=== PATIENT | female | born 1955 | race Caucasian/White ===

== ENCOUNTER 2024-01-16 10:20 | Emergency (ER) | payer OTHER, SELFPAY ==
[2024-01-16 10:34] VITALS: BP 133/79
--- NOTE | 2024-01-16 11:06 | ED.GENMED ---
History of Present Illness
General
Chief Complaint: Abdominal Symptoms
Time Seen by Provider: 01/16/24 11:06
History of Present Illness
History of Present Illness:
HPI: Patient presents with abdominal discomfort, intermittent nausea and diarrhea. This been going on for several weeks. She had a similar episode that lasted for a couple of months last year. She had an unremarkable workup at that time. An
ultrasound is scheduled for next week.
EXAM:
GENERAL: Well appearing in no distress
HEENT: Moist oral mucosa
CARDIOVASCULAR: No murmurs, normal heart rate, regular rhythm, No chest wall tenderness
PULMONARY: No respiratory distress, breath sounds are clear and equal
ABDOMEN: Soft with no peritoneal signs, mild diffuse primarily upper tenderness, elevated BMI noted
NEUROLOGIC: Excellent strength all extremities, no coordination deficits
PSYCHIATRIC: Appropriate mental status, normal insight and judgement
EXTREMITIES: Nontender, no edema, moves all extremities equally
SKIN: No rash, no lesions
TIME OF INITIAL ENCOUNTER: 11:45 AM
NUMBER AND COMPLEXITY OF PROBLEMS ADDRESSED AT THE ENCOUNTER
� Chronic conditions affecting care: Diverticular disease, high blood pressure, hyperlipidemia, insomnia
� Acute Exacerbation and/or Progression of Chronic Illness: This is an acute problem
� Differential Diagnosis includes: Diverticulitis, GERD, bowel obstruction
AMOUNT AND/OR COMPLEXITY OF DATA TO BE REVIEWED AND ANALYZED
� I performed an independent evaluation of and my interpretation is:
EKG:
CT: CT imaging shows no acute abnormality
X-rays:
Laboratory Studies: Normal white count and hemoglobin, mild renal insufficiency noted. No clear evidence for urinary tract affection.
Other:
� Review of other/old records: The patient had normal CBC in 2016
� Clinical information was obtained by an independent historian: None needed
� Prescriptions/Medications Considered but not given:
� Further testing considered but not performed:
RISK OF COMPLICATIONS AND/OR MORBIDITY OR MORTALITY OF PATIENT MANAGEMENT
� Social determinants of health affecting care: Lives at home
� Discussion with other providers:
� Escalation of care including admission/observation vs risk of discharge considered: The patient had unremarkable ED workup and appears fairly comfortable. Unclear etiology of patient's symptoms however she appears comfortable
at time of discharge.
Phy Exam
Physical Exam
Physical Exam:
See HPI
Course
Orders/Labs/Results
Orders:
Orders
01/16/24 11:18
IV Insert/Care/Rem.- Treatment PRN
01/16/24 11:19
Complete Blood Count/With Diff Urgent
Comprehensive Metabolic Panel Urgent
Lipase Urgent
Urinalysis Reflex To Culture Urgent
Date Specimen was Collected: 01/16/24
Time Specimen was Collected: 11:19
Urine Microscopic Reflex Cult Urgent
01/16/24 11:23
CT Abd/pelvis W Iv Cont Urgent
Comment:
Reason For Exam: abd pain / more upper
Abnormal Lab Results
01/16/24
11:19
Sodium 134 L mmol/L
(135-145)
Chloride 94 L mmol/L
(98-107)
Carbon Dioxide 32 H mmol/L
(22-30)
Creatinine 1.3 H mg/dL
(0.6-1.0)
Glucose 111 H mg/dl
(70-99)
Urine Ketones 1+ A
(Negative)
Ur Occult Blood Reflex 2+ A
(Negative)
Urine Bilirubin 1+ A
(Negative)
Leukocyte Esterase Rfl Trace A
(Negative)
01/16/24 11:19
01/16/24 11:19
Vital Signs
Initial and Last Documented VS:
Initial Vital Signs
Temp Pulse Resp BP Pulse Ox
98.3 F 93 16 133/79 96
01/16/24 10:34 01/16/24 10:34 01/16/24 10:34 01/16/24 10:34 01/16/24 10:34
Last Documented Vital Signs
Temp Pulse Resp BP Pulse Ox
98.3 F 73 17 133/79 96
01/16/24 10:34 01/16/24 11:31 01/16/24 11:31 01/16/24 10:34 01/16/24 11:31
*Critical Care Note
Total Time (30-74mins, 75-104mins- exclusive of procedures): Not Applicable
ED Attending Note
-
Portions of this chart may have been created with voice recognition software.� Occasional wrong word or��sound alike� substitutions may have occurred due to the inherent limitations of voice recognition software.
Discharge Plan
Departure
Patient Disposition: Home (Routine Discharge)
Date of Disposition: 01/16/24
Time of Disposition: 13:54
Patient with high blood pressure during this ER visit?: Yes
Discharge Problem:
Abdominal pain
Instructions: Nausea and Vomiting, Adult (DC), Abdominal Pain
Prescriptions:
New
ondansetron HCl 4 mg tablet
4 mg PO TID PRN (Reason: nausea and vomiting) Qty: 10 0RF
Referrals:
Jeremy Hooker CRNP [Family Provider] -
Activity Restrictions/Additional Instructions:
The cause of your symptoms is unclear. Follow-up with your GI doctor. I sent a prescription for Zofran (nausea medicine) to your pharmacy. Return here if worse.
Interventions
Interventions:
*General Assessment Last Done: 01/16/24 10:34
ED- Fall Risk Assessment Last Done: 01/16/24 11:24
*ED COVID-19 Vaccine History Last Done: 01/16/24 10:34
MB-Dufkeq-Stmfacsmjs Assessment Last Done: 01/16/24 11:24
Discharge Date and Time
Print Language: MALDIVIAN
[2024-01-16 11:28] VITALS: BMI 36.2
[2024-01-16 11:29] LABS: % Basophils 0.8 % (0-2); % Eosinophils 2.1 % (0-6); % Immature Granulocytes 0.4 % (0-0.5); % Lymphocytes 25.1 % (20.5-51.1); % Monocytes 7.8 % (1.7-9.3); % Neutrophils 63.8 % (42.2-75.2); Absolute Basophils 0.1 10^3/uL (0-0.2); Absolute Eosinophils 0.2 10^3/uL (0-0.7); Absolute Lymphocytes 1.9 10^3/uL (1.2-3.4); Absolute Monocytes 0.6 10^3/uL (0.1-0.6); Absolute Neutrophils 4.9 10^3/uL (1.4-6.5); Hematocrit 40.6 % (37.0-47.0); Hemoglobin 13.9 g/dL (12.0-16.0); Mean Corp Hgb Conc. 34.2 g/dL (33.0-37.0); Mean Corpuscular Hgb 28.1 pg (27.0-31.0); Mean Corpuscular Volume 82.2 fL (81.0-99.0); Mean Platelet Volume 8.7 fL (7.4-10.4); Nucleated Red Blood Cells % 0 %; Platelet Count 291 10^3/uL (130-400); Red Blood Cell Count 4.94 10^6/uL (4.20-5.40); Red Cell Dist. Width 12.9 % (11.5-14.5); White Blood Cell Count 7.7 10^3/uL (4.8-10.8)
[2024-01-16 11:33] LABS: Urine Albumin Trace (Neg - Trace); Urine Bilirubin 1+ (Negative); Urine Character Clear (Clear); Urine Color Yellow; Urine Glucose Negative (Negative); Urine Ketone 1+ (Negative); Urine Leukocyte Trace (Negative); Urine Nitrite Negative (Negative); Urine Occult Blood 2+ (Negative); Urine Urobilinogen Negative (Neg - 1+)
[2024-01-16 11:47] LABS: ALT (SGPT) 27 U/L (0-35); AST (SGOT) 35 U/L (14-36); Albumin 4.7 g/dl (3.5-5.0); Alkaline Phosphatase 73 U/L (38-126); Blood Urea Nitrogen 15 mg/dl (7-17); Calcium 9.9 mg/dl (8.4-10.2); Carbon Dioxide 32 mmol/L (22-30); Chloride 94 mmol/L (98-107); Estimated Creatinine Clearance 54 ml/min; Glucose 111 mg/dl (70-99); Lipase 84 U/L (23-300); Potassium 3.5 mmol/L (3.5-5.1); Sodium 134 mmol/L (135-145); Total Bilirubin 0.6 mg/dl (0.2-1.3); Urine Red Blood Cell 0-2 /HPF (0-2); eGFR 45.07
--- NOTE | 2024-01-16 14:32 | ED.GENMED ---
History of Present Illness
General
Chief Complaint: Abdominal Symptoms
Time Seen by Provider: 01/16/24 11:06
Course
Orders/Labs/Results
Orders:
Orders
01/16/24 11:18
IV Insert/Care/Rem.- Treatment PRN
01/16/24 11:19
Complete Blood Count/With Diff Urgent
Comprehensive Metabolic Panel Urgent
Lipase Urgent
Urinalysis Reflex To Culture Urgent
Date Specimen was Collected: 01/16/24
Time Specimen was Collected: 11:19
Urine Microscopic Reflex Cult Urgent
01/16/24 11:23
CT Abd/pelvis W Iv Cont Urgent
Comment:
Reason For Exam: abd pain / more upper
Abnormal Lab Results
01/16/24
11:19
Sodium 134 L mmol/L
(135-145)
Chloride 94 L mmol/L
(98-107)
Carbon Dioxide 32 H mmol/L
(22-30)
Creatinine 1.3 H mg/dL
(0.6-1.0)
Glucose 111 H mg/dl
(70-99)
Urine Ketones 1+ A
(Negative)
Ur Occult Blood Reflex 2+ A
(Negative)
Urine Bilirubin 1+ A
(Negative)
Leukocyte Esterase Rfl Trace A
(Negative)
01/16/24 11:19
01/16/24 11:19
Vital Signs
Initial and Last Documented VS:
Initial Vital Signs
Temp Pulse Resp BP Pulse Ox
98.3 F 93 16 133/79 96
01/16/24 10:34 01/16/24 10:34 01/16/24 10:34 01/16/24 10:34 01/16/24 10:34
Last Documented Vital Signs
Temp Pulse Resp BP Pulse Ox
98.3 F 73 17 133/79 96
01/16/24 10:34 01/16/24 11:31 01/16/24 11:31 01/16/24 10:34 01/16/24 11:31
ED Attending Note
-
Portions of this chart may have been created with voice recognition software.� Occasional wrong word or��sound alike� substitutions may have occurred due to the inherent limitations of voice recognition software.
Discharge Plan
Departure
Patient Disposition: Home (Routine Discharge)
Date of Disposition: 01/16/24
Time of Disposition: 13:54
Patient with high blood pressure during this ER visit?: Yes
Discharge Problem:
Abdominal pain
Instructions: Nausea and Vomiting, Adult (DC), Abdominal Pain
Prescriptions:
New
ondansetron HCl 4 mg tablet
4 mg PO TID PRN (Reason: nausea and vomiting) Qty: 10 0RF
Referrals:
Jeremy Hooker CRNP [Family Provider] -
Activity Restrictions/Additional Instructions:
The cause of your symptoms is unclear. Follow-up with your GI doctor. I sent a prescription for Zofran (nausea medicine) to your pharmacy. Return here if worse.
Interventions
Interventions:
*General Assessment Last Done: 01/16/24 10:34
ED- Fall Risk Assessment Last Done: 01/16/24 11:24
*ED COVID-19 Vaccine History Last Done: 01/16/24 10:34
CH-Rtqjjy-Fevlfugwun Assessment Last Done: 01/16/24 11:24
Discharge Date and Time
Print Language: URDU
[2024-01-16 14:39] VITALS: BP 116/54
[2024-01-16 14:40] VITALS: BP 116/54
== END 2024-01-16 14:41 | disposition home or self-care (01) ==
LOC: EMR 10:20
PROVIDERS: EMERGENCY PHYSICIAN Emergency Medicine; FAMILY PHYSICIAN Nurse Practitioner Family
DX: R10.9 Unspecified abdominal pain (principal); R03.0 Elevated blood-pressure reading, without diagnosis of hypertension
CPT/HCPCS: 99285; 74177; 80053; 81003; 81015; 83690; 85025; Q9967

== ENCOUNTER → 2024-01-23 11:03 | Outpatient (REF) | payer OTHER, SELFPAY | LOC: HWRAD 11:03 | PROVIDERS: ATTENDING PHYSICIAN Nurse Practitioner Family | DX: Z98.84 Bariatric surgery status (principal); R10.10 Upper abdominal pain, unspecified; K21.9 Gastro-esophageal reflux disease without esophagitis | CPT/HCPCS: 76700 ==

== ENCOUNTER → 2024-03-10 06:17 | Day surgery (SDC) | payer OTHER, SELFPAY | LOC: GI 06:17 | PROVIDERS: ATTENDING PHYSICIAN Internal Medicine Gastroenterology; FAMILY PHYSICIAN Nurse Practitioner Family | DX: K57.30 Diverticulosis of large intestine without perforation or abscess without bleeding (principal); K64.8 Other hemorrhoids; D50.9 Iron deficiency anemia, unspecified; K44.9 Diaphragmatic hernia without obstruction or gangrene; R10.13 Epigastric pain; Z98.84 Bariatric surgery status; K31.89 Other diseases of stomach and duodenum | CPT/HCPCS: 45378; 43239; 88305; 88342 ==